=== PATIENT | male | born 1985 ===

== ENCOUNTER 2018-11-18 05:07 | Emergency (ER) | payer SELFPAY ==
[2018-11-18 05:11] VITALS: BP 126/80; PULSE 76; RESP 18; TEMP 98; O2SAT 99
--- NOTE | 2018-11-18 05:46 | C.PDOC ---
History Of Present Illness 33 year old male presents to the ED stating that he was drinking alcohol tonight. Patient states PD call EMS. Patient has no physical complaints. Time Seen by Provider: 11/18/18 05:16 Chief Complaint (Nursing): Medical Clearance History Per: Patient History/Exam Limitations: no limitations Current Symptoms Are (Timing): Gone Severity: None Pain Scale Rating Of: 0 Past Medical History Reviewed: Historical Data, Nursing Documentation, Vital Signs Vital Signs: Last Vital Signs Temp 98.0 F 11/18/18 05:08 Pulse 76 11/18/18 05:08 Resp 18 11/18/18 05:08 BP 126/80 11/18/18 05:08 Pulse Ox 99 11/18/18 05:08 Family History: States: No Known Family Hx - Social History Hx Alcohol Use: Yes Hx Substance Use: No - Immunization History Hx Tetanus Toxoid Vaccination: Yes Hx Influenza Vaccination: Yes Hx Pneumococcal Vaccination: Yes Review Of Systems Except As Marked, All Systems Reviewed And Found Negative. Constitutional: Negative for: Fever Eyes: Negative for: Pain ENT: Negative for: Ear Pain Cardiovascular: Negative for: Chest Pain Respiratory: Negative for: Cough Gastrointestinal: Negative for: Nausea, Vomiting, Abdominal Pain Genitourinary: Negative for: Dysuria, Frequency Musculoskeletal: Negative for: Neck Pain Skin: Negative for: Rash Neurological: Negative for: Weakness Psych: Negative for: Anxiety, Depression Physical Exam - Physical Exam Appears: Well, Non-toxic Skin: Normal Color, Warm, Dry Head: Atraumatic, Normacephalic Eye(s): bilateral: Normal Inspection, PERRL, EOMI Ear(s): Bilateral: Normal Nose: Normal Oral Mucosa: Moist Tongue: Normal Appearing Lips: Normal Appearing Teeth: Normal Dentition Throat: Normal Neck: Normal, Normal ROM Lymphatic: Deferred Chest: Symmetrical Cardiovascular: Rhythm Regular Respiratory: Normal Breath Sounds Gastrointestinal/Abdominal: Normal Exam, Bowel Sounds, Soft, No Tenderness Rectal: Deferred Male Genital: Normal Inspection Extremity: Normal ROM ED Course And Treatment O2 Sat by Pulse Oximetry: 99 Disposition - Disposition Disposition: HOME/ ROUTINE Disposition Time: 05:20 Condition: GOOD Additional Instructions: HENRIETTA TONY, thank you for letting us take care of you today. The emergency medical care you received today was directed at your acute symptoms. If you were prescribed any medication, please fill it and take as directed. It may take several days for your symptoms to resolve. Return to the Emergency Department if your symptoms worsen, do not improve, or if you have any other problems. Please contact your doctor or call one of the physicians/clinics you have been referred to that are listed on the Patient Visit Information form that is included in your discharge packet. Bring any paperwork you were given at discharge with you along with any medications you are taking to your follow up visit. Our treatment cannot replace ongoing medical care by a primary care provider outside of the emergency department. Thank you for allowing the [facility] team to be part of your care today. Do not drink too much alcohol at one time. Follow up with your primary care doctor if you have any concerns. Instructions: Alcohol Use - When Is Drinking a Problem? Forms: [employer] (French) - Clinical Impression Clinical Impression: Alcohol use
== END 2018-11-18 05:39 | disposition home or self-care (01) ==
LOC: C.ER 05:07
DX: Z72.89 Other problems related to lifestyle (principal)